=== PATIENT | male | born 1980 | race Two or more races ===

== ENCOUNTER 2017-05-08 21:20 | Emergency (ER) | payer BC ==
[~2017-05-08] VITALS: Ht 162.6 cm; Wt 82.2 kg
[2017-05-08 21:21] VITALS: BP 148/92
[2017-05-08] MEDS ORDERED: FLUORESCEIN OPHTHALMIC 1 MG STRIP ONE ×2 (21:37→21:48)
[2017-05-08] MEDS ORDERED: PROPARACAINE OPHTH 0.5%, 15ML ONE ×2 (21:38→21:48)
== END 2017-05-08 22:39 | disposition home or self-care (01) ==
LOC: ED 22:30
DX: S05.01XA Injury of conjunctiva and corneal abrasion without foreign body, right eye, initial encounter (principal); X58.XXXA Exposure to other specified factors, initial encounter; Y93.89 Activity, other specified; Y92.89 Other specified places as the place of occurrence of the external cause; Y99.8 Other external cause status
CPT/HCPCS: 99283